=== PATIENT | female | born 1935 | race Hispanic/Latino ===

== ENCOUNTER → 2023-02-13 | Outpatient (CLI) | payer OTHER, MEDICARE ==
[~2023-02-13] MED LIST: DOXY-469 PO; HYDR42CR3 TP
== END | disposition home or self-care (01) ==
LOC: SHCH 14:41
PROVIDERS: ATTEND Internal Medicine Cardiovascular Disease
DX: I65.23 Occlusion and stenosis of bilateral carotid arteries (principal)
CPT/HCPCS: 93880

== ENCOUNTER 2023-09-25 11:47 | Emergency (ER) | payer OTHER, MEDICARE ==
[~2023-09-25] VITALS: Ht 160 cm; Wt 62.6 kg
[2023-09-25 12:02] VITALS: BP 115/77; PULSE 63; RESP 16
[2023-09-25] MEDS: IBUPROFEN 600 MG TABLET PO ONE (13:15)
== END 2023-09-25 15:07 | disposition left against medical advice (07) ==
LOC: EDH 11:47
DX: S43.012A Anterior subluxation of left humerus, initial encounter (principal); M25.512 Pain in left shoulder; E11.9 Type 2 diabetes mellitus without complications; I10 Essential (primary) hypertension; J45.909 Unspecified asthma, uncomplicated; Z88.0 Allergy status to penicillin; Z53.21 Procedure and treatment not carried out due to patient leaving prior to being seen by health care provider; X58.XXXA Exposure to other specified factors, initial encounter; Y93.89 Activity, other specified; Y92.89 Other specified places as the place of occurrence of the external cause; Y99.8 Other external cause status
CPT/HCPCS: 73030; 99281

== ENCOUNTER 2023-11-16 11:40 | Emergency (ER) | payer OTHER, MEDICARE ==
[~2023-11-16] VITALS: Ht 154.9 cm; Wt 59.0 kg
[2023-11-16 11:45] VITALS: BP 176/66; PULSE 58; RESP 16
[2023-11-16] MEDS ORDERED: ACET-2247 PO (12:32)
== END 2023-11-16 12:47 | disposition home or self-care (01) ==
LOC: EDH 11:40
DX: S60.511A Abrasion of right hand, initial encounter (principal); I10 Essential (primary) hypertension; E11.9 Type 2 diabetes mellitus without complications; J45.909 Unspecified asthma, uncomplicated; Z98.890 Other specified postprocedural states; Z88.0 Allergy status to penicillin; Z88.8 Allergy status to other drugs, medicaments and biological substances; W55.03XA Scratched by cat, initial encounter; Y93.89 Activity, other specified; Y92.89 Other specified places as the place of occurrence of the external cause; Y99.8 Other external cause status
CPT/HCPCS: 99282